=== PATIENT | female | born 2005 | race Two or more races ===

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

== ENCOUNTER 2024-02-21 03:39 | Emergency (ER) | payer OTHER ==
[~2024-02-21] VITALS: Ht 157.5 cm; Wt 44.5 kg
[~2024-02-21 03:39] MED LIST changes: +ATARAX25 MG PO; +SARNA SENSITIV222 ML TOP; +TUSICOF CAPLET1 EACH PO
[2024-02-21] MEDS ORDERED: PROMETHAZINE HCL 50 MG/ML AMPUL IM STA (04:48)
[2024-02-21] MEDS ORDERED: HYOSCYAMINE SULFATE 0.125 MG TAB.SUBL SL STA (04:48)
[2024-02-21] MEDS ORDERED: LACTOBACILLUS ACIDOPHILUS 1 CAP CAP PO STA (04:49)
[2024-02-21] MEDS ORDERED: FAMOTIDINE/PF 20 MG/2 ML VIAL IV PUSH STA (04:49)
[2024-02-21] MEDS ORDERED: 0.9 % SODIUM CHLORIDE 1,000 ML IV ONE (05:00)
[2024-02-21 06:17] LABS: HEMATOCRIT 35.4 % (36.0-45.00); HEMOGLOBIN 12.4 g/dL (12.0-15.00); MEAN CELL VOLUME 90.5 fL (80.00-100.00); MEAN CORPUSCULAR HEMOGLOBIN 31.7 pg (27.00-32.0); MEAN CORPUSCULAR HGB CONC 35.1 g/dl (32.0-36.0); PLATELET COUNT 148 K/uL (150-450); RED BLOOD COUNT 3.92 M/uL (4.00-6.00); RED CELL DISTRIBUTION WIDTH 11.9 % (11.5-14.5)
[2024-02-21 06:43] LABS: CALCIUM 9.7 mg/dL (8.5-10.1); CREATININE SERUM 0.8 mg/dL (0.55-1.02); GFR 91.44; POTASSIUM 3.69 mEq/L (3.5-5.1)
[2024-02-21 07:27] VITALS: BP 100/59; O2SAT 98
[2024-02-21 09:07] LABS: URINE APPEARANCE Clear; URINE BILIRRUBIN Negative (NEGATIVE); URINE BLOOD Large; URINE COLOR Yellow; URINE GLUCOSE Negative (NEGATIVE); URINE LEUKOCYTE Trace; URINE NITRATE Negative; URINE PROTEIN Trace (NEGATIVE); URINE UROBILINOGEN 0.2 E.U./dl
[2024-02-21 09:12] LABS: URINE BACTERIA 157.4 uL (0.0-1933); URINE EPITHELIAL CELLS 7.5 uL (0.0-38.8); URINE RBC 257.2 uL (0.0-20.8); URINE WBC 14.8 uL (0.0-23.2)
[2024-02-21 09:46] LABS: URINE KETONE 80 (NEGATIVE); URINE MUCUS SCANT
[2024-02-21] MEDS ORDERED: PEPCID AC20 MG PO (11:03)
[2024-02-21] MEDS ORDERED: METRONIDAZOLE500 MG PO (11:03)
[2024-02-21] MEDS ORDERED: CIPRO500 MG PO (11:03)
[2024-02-21] MEDS ORDERED: PROBIOTIC1 EACH PO (11:03)
== END 2024-02-21 11:20 | disposition home or self-care (01) ==
LOC: EMR PED 03:39 → ER 03:56 → EMR PED 03:56 → ER 11:20
PROVIDERS: General Practice
DX: K52.89 Other specified noninfective gastroenteritis and colitis (principal)

== ENCOUNTER 2024-11-13 12:56 | Emergency (ER) | payer OTHER ==
[~2024-11-13] VITALS: Ht 157.5 cm; Wt 45.4 kg
[~2024-11-13 12:56] MED LIST changes: +CIPRO500 MG PO; +METRONIDAZOLE500 MG PO; +PEPCID AC20 MG PO; +PROBIOTIC1 EACH PO
[2024-11-13 14:42] LABS: BASO % 0.3 % (0.1-1.2); EOS # 0.12 (0.04-0.54); EOS % 1.6 % (0.7-7.0); LYMPH # 1.35 (1.18-3.74); LYMPH % 18.0 % (19.3-53.1); MEAN PLATELET VOLUME 10.40 fl (9.4-12.4); MONO # 0.62 (0.24-0.82); MONO % 8.2 % (4.7-12.5); NEUT # 5.38 (1.56-6.13); NEUT % 71.5 % (34.0-71.1); RED CELL DISTRIBUTION WIDTH 11.4 % (11.6-14.4)
== END 2024-11-13 17:20 | disposition home or self-care (01) ==
LOC: ER 12:56
PROVIDERS: General Practice
DX: O20.9 Hemorrhage in early pregnancy, unspecified (principal); Z3A.01 Less than 8 weeks gestation of pregnancy